=== PATIENT | female | born 1985 | race Caucasian/White ===

== ENCOUNTER → 2016-07-03 | Outpatient (REF) ==
[2016-07-04 12:25] LABS: THYROID STIMULATING HORMONE 0.979 uIU/mL (0.465-4.680)
== END ==
LOC: ZLAB.WCH 14:00
PROVIDERS: Internal Medicine
DX: Z02.89 Encounter for other administrative examinations (principal)

== ENCOUNTER 2018-05-13 05:10 | Inpatient (IN) | payer BC ==
[~2018-05-13] VITALS: Ht 157.5 cm; Wt 88.6 kg
[2018-05-13] VITALS (25 sets, daily range): BP systolic 116–148; BP diastolic 59–83; PULSE 66–88; TEMP 98.1–98.7
--- NOTE | 2018-05-13 05:15 | NUR ---
PT TO UNIT WITH COMPLAINTS OF POSSIBLE SROM AT 0330. PT TO ROOM AMBULATORY WITH SPOUSE. CHANGED INTO GOWN, AMNIOSWAB POSITIVE, SVE PERFORMED, VS OBTAINED.
[2018-05-13] MEDS ORDERED: PRENATAL PO (05:38)
[2018-05-13 07:05] LABS: BASO % 0.2 % (0.0-2.0); EOS # 0.1 (0.0-0.7); GRAN # 6.9 (1.4-6.5); GRAN % 65.6 % (42.2-75.2); HEMOGLOBIN 10.6 g/dl (12.5-16.0); LYMPH # 2.5 (1.2-3.4); MEAN CELL VOLUME 85 fl (80.0-100.0); MEAN CORPUSCULAR HEMOGLOBIN 27 pg (27.0-31.0); MEAN CORPUSCULAR HGB CONC 32 g/dl (33.0-37.0); MEAN PLATELET VOLUME 10.6 fl (7.4-10.4); MONO # 0.9 (0.1-0.6); MONO % 8.5 % (1.7-9.3); PLATELET COUNT 227 K/mm3 (130-400); REDCELL DISTRIBUTION WIDTH-CV 14.5 % (11.5-14.5)
[2018-05-13 07:06] LABS: HEMATOCRIT 33.3 % (37.0-47.0)
--- NOTE | 2018-05-13 08:05 | NUR ---
0805: Dr. Burdick at nurses station and reviews FHR and contraction pattern on monitor. In patient room. Bedside US by Dr. Burdick and breech position verified. Will continue with primary section delivery due to breech position. Patient prepped for OR. Patient off FHR and contraction monitors at 0852 and ambulates back to OR.
[2018-05-14 01:00] VITALS: BP 130/75; PULSE 70; TEMP 98
[2018-05-14 08:00] VITALS: BP 124/70; PULSE 75; TEMP 98.7
--- NOTE | 2018-05-14 08:00 | NUR ---
Rests in bed, alert. Percocet 5/325 mg. p.o. given per request and as ordered.
--- NOTE | 2018-05-14 09:00 | NUR ---
0925 Rests in bed, alert. furniture rental consultant here working with .
--- NOTE | 2018-05-14 09:32 | NUR ---
Initial visit; Parents thanked [employer] for offering congratulations and God's blessings to their family for of their son. [employer] thanked family for choosing [facility].
--- NOTE | 2018-05-14 10:00 | NUR ---
Rests in bed, alert. it consultant visits with patient.
--- NOTE | 2018-05-14 12:00 | NUR ---
Rests in bed, alert. Percocet 5/325 mg two given per request and as ordered.
--- NOTE | 2018-05-14 14:00 | NUR ---
Rests in bed, alert. domestic travel consultant with patient.
--- NOTE | 2018-05-14 16:00 | NUR ---
1615 Rests in bed, alert. Ibuprofen 600 mg., percocet 5/325 mg. two given per request and as ordered.
[2018-05-14 20:30] VITALS: BP 144/73; PULSE 78; TEMP 98.3
[2018-05-15 07:15] VITALS: BP 115/71; PULSE 94; TEMP 98.6
[2018-05-15] MEDS ORDERED: IBU600 MG PO (13:18)
[2018-05-15] MEDS ORDERED: PERCOCET 325 MG1 TA2 PO (13:19)
[2018-05-15 16:25] VITALS: BP 138/73; PULSE 78; TEMP 97.9
[2018-05-15 20:30] VITALS: BP 139/78; PULSE 81; TEMP 97.4
[2018-05-16 08:50] VITALS: BP 120/70; PULSE 91; TEMP 98.5
== END 2018-05-16 12:55 | disposition home or self-care (01) | DRG 788 ==
LOC: LDRO 05:10 → LDR 05:47 → OB 10:45
PROVIDERS: ADMIT Obstetrics & Gynecology
PROC: 10D00Z1 Extraction of Products of Conception, Low, Open Approach (ICD-10-PCS; principal; 2018-05-13)
DX: O32.1XX0 Maternal care for breech presentation, not applicable or unspecified (principal); Z3A.37 37 weeks gestation of pregnancy; Z37.0 Single live birth; O42.02 Full-term premature rupture of membranes, onset of labor within 24 hours of rupture; O99.344 Other mental disorders complicating childbirth; F41.8 Other specified anxiety disorders; O69.2XX0 Labor and delivery complicated by other cord entanglement, with compression, not applicable or unspecified; Z88.0 Allergy status to penicillin
CPT/HCPCS: J0690; J1885; J2270; J2590; J7120

== ENCOUNTER 2019-05-28 16:44 | Emergency (ER) | payer BC ==
[~2019-05-28] VITALS: Ht 157.5 cm; Wt 56.8 kg
[~2019-05-28 16:44] MED LIST: IBU600 MG PO; PERCOCET 325 MG1 TA2 PO; PRENATAL PO
[2019-05-28 17:05] VITALS: BP 161/90; TEMP 98
[2019-05-28] MEDS ORDERED: TYLENOL W/COD1 UDTAB PO (17:23)
[2019-05-28] MEDS ORDERED: CLEOCIN HC150 MG/CAP PO (17:23)
[2019-05-28 18:05] LABS: BASO % 0.3 % (0.0-2.0); EOS # 0.1 (0.0-0.7); EOS % 0.8 % (0-4.0); GRAN # 5.4 (1.4-6.5); GRAN % 58.7 % (42.2-75.2); HEMOGLOBIN 13.9 g/dl (12.5-16.0); LYMPH # 3.2 (1.2-3.4); LYMPH % 34.9 % (20.0-51.0); MEAN CELL VOLUME 88 fl (80.0-100.0); MEAN CORPUSCULAR HEMOGLOBIN 29 pg (27.0-31.0); MEAN CORPUSCULAR HGB CONC 33 g/dl (33.0-37.0); MEAN PLATELET VOLUME 9.1 fl (7.4-10.4); MONO # 0.5 (0.1-0.6); MONO % 5.1 % (1.7-9.3); PLATELET COUNT 247 K/mm3 (130-400); RED BLOOD COUNT 4.78 M/mm3 (4.10-5.30); REDCELL DISTRIBUTION WIDTH-CV 12.3 % (11.5-14.5)
[2019-05-28] MEDS ORDERED: LEVAQUIN 750MG750 M1 PO (18:46)
[2019-05-28 19:00] VITALS: PULSE 86
== END 2019-05-28 19:00 | disposition home or self-care (01) ==
LOC: COL.ER 16:44
PROVIDERS: Physician Assistant
DX: K08.89 Other specified disorders of teeth and supporting structures (principal)